=== PATIENT | male | born 1945 | race Caucasian/White ===

== ENCOUNTER 2018-07-14 19:05 | Inpatient (IN) | payer MEDICARE, MEDICAID ==
[~2018-07-14] VITALS: Ht 170.2 cm; Wt 78.5 kg
[~2018-07-14 19:05] MED LIST: BENA20TA10 PO; TRAM50TA3 PO
[2018-07-14] MEDS ORDERED: ALBUTEROL (0.083%) 2.5MG/3ML NEB HHN STA (19:26)
[2018-07-14] MEDS ORDERED: IPRATROPIUM BROMIDE (0.02%) 0.5MG/2.5ML NEB HHN STA (19:26)
[2018-07-14] MEDS ORDERED: METHYLPREDNISOLONE SOD SUCC 125 MG/2 ML VIAL IV STA (19:26)
[2018-07-14] MEDS ORDERED: MAGNESIUM 2 G PREMIX 50 ML IV STA (19:26)
[2018-07-14] MEDS ORDERED: FUROSEMIDE 20MG/2ML VIAL IVP ONE (19:45)
[2018-07-14 20:00] LABS: BASOPHILS % 0.8 % (0.0-2.0); EOSINOPHILS % 1.7 % (0.0-5.0); HEMATOCRIT. 34.1 % (42.0-52.0); HEMOGLOBIN. 11.2 g/dL (14.0-18.0); LYMPHOCYTES % 32.9 % (20.0-50.0); MEAN CORPUSCULAR HEMOGLOBIN 28.4 pg (28.0-32.0); MEAN CORPUSCULAR VOLUME 86.6 fL (80.0-94.0); MEAN PLATELET VOLUME 9.3 fl (7.4-10.4); MONOCYTES % 6.8 % (2.0-8.0); NEUTROPHILS % 57.8 % (40.0-76.0); PLATELET 258 x1000/uL (130-400); RED BLOOD CELL COUNT 3.93 mill/uL (4.7-6.1); RED CELL DISTRIBUTION WIDTH 14.7 % (11.6-14.6)
[2018-07-14 20:06] LABS: CHLORIDE 104 mEq/L (98-107)
[2018-07-14 20:08] LABS: PARTIAL THROMBOPLASTIN TIME 27.3 sec (23.4-31.0); PROTHROMBIN TIME 9.9 sec (9.1-11.1)
[2018-07-14] MEDS ORDERED: ACETAMINOPHEN 325MG TABLET PO PRN (22:00)
[2018-07-14] MEDS ORDERED: MAGNESIUM/ALUMINUM HYDROXIDE/SIMETHICONE 30ML UDC PO PRN (22:00)
[2018-07-14] MEDS ORDERED: ONDANSETRON HCL 4MG/2ML INJ IV PRN (22:00)
[2018-07-14] MEDS ORDERED: LORAZEPAM 2MG/ML CPJ IV PRN (22:00)
[2018-07-14] MEDS ORDERED: IPRATROPIUM/ALBUTEROL 0.5-3(2.5)MG/3ML NEB INH PRN (22:00)
[2018-07-14] MEDS ORDERED: HYDROMORPHONE HCL/PF 2MG/ML CPJ IV PRN (22:00)
[2018-07-14] MEDS ORDERED: HYDROCODONE/ACETAMINOPHEN 10/325MG TABLET PO PRN (22:00)
[2018-07-14] MEDS ORDERED: HYDRALAZINE 20MG/ML VIAL IV PRN (22:00)
[2018-07-14] MEDS ORDERED: DOCUSATE SODIUM 100MG CAPSULE PO PRN (22:00)
[2018-07-14] MEDS ORDERED: NA PHOS,M-B/NA PHOS,DI-BA ENEMA 118ML PR PRN (22:00)
[2018-07-14] MEDS ORDERED: GUAIFENESIN 200MG/10ML SUGAR FREE UDC PO PRN (22:00)
[2018-07-14] MEDS ORDERED: DIPHENHYDRAMINE 50MG/ML VIAL IV PRN (22:00)
[2018-07-14] MEDS ORDERED: DEXTROSE 50% WATER 50ML SYRINGE IV PRN (22:15)
[2018-07-14 22:29] LABS: CREATINE KINASE MB FRACTION 3.8 ng/mL (0.5-3.6)
[2018-07-15 00:45] LABS: CLARITY URINE CLEAR (CLEAR); COLOR URINE YELLOW (YELLOW); KETONES URINE NEGATIVE (NEGATIVE); LEUKOCYTE ESTERASE URINE TRACE (NEGATIVE); NITRITE URINE NEGATIVE (NEGATIVE); OCCULT BLOOD URINE 1+ (NEGATIVE); PROTEIN URINE 3+ (NEGATIVE); SPECIFIC GRAVITY URINE 1.012 (1.005-1.030); UROBILINOGEN URINE 0.2 E.U./dL (0.2-1.0)
[2018-07-15 05:39] LABS: HEMOGLOBIN. 9.9 g/dL (14.0-18.0); MEAN CORPUSCULAR HEMOGLOBIN 28.5 pg (28.0-32.0); MEAN CORPUSCULAR VOLUME 86.4 fL (80.0-94.0); MEAN PLATELET VOLUME 9.8 fl (7.4-10.4); PLATELET 224 x1000/uL (130-400); RED BLOOD CELL COUNT 3.48 mill/uL (4.7-6.1)
[2018-07-15 05:44] LABS: CHLORIDE 102 mEq/L (98-107)
[2018-07-15 05:54] LABS: CREATINE KINASE 243 IU/L (39-308)
[2018-07-15 05:55] LABS: T4 FREE 1.41 ng/dL (0.76-1.46)
[2018-07-15 05:58] LABS: CREATINE KINASE MB FRACTION 9.9 ng/mL (0.5-3.6)
[2018-07-15 06:48] LABS: PLATELET ESTIMATE NORMAL
[2018-07-15 08:00] VITALS: BP 127/61
[2018-07-15 09:00] VITALS: BP 127/61
[2018-07-15] MEDS ORDERED: FUROSEMIDE 40MG/4ML VIAL IV SCH (09:00)
[2018-07-15] MEDS: BLOOD SUGAR DIAGNOSTIC STRIP TEST SCH ×4 (09:29→20:56)
[2018-07-15] MEDS: ASPIRIN 81MG EC TABLET PO SCH (09:30)
[2018-07-15] MEDS: SODIUM CHLORIDE 0.9% INJ 3ML FLUSH IVF SCH ×3 (09:30→21:10)
[2018-07-15] MEDS: INSULIN LISPRO 100 UNITS/ML SUBCUT SCH ×4 (09:33→21:12)
[2018-07-15] MEDS ORDERED: ENOXAPARIN 40MG/0.4ML SYR SUBCUT SCH (10:00)
[2018-07-15] MEDS ORDERED: CLOPIDOGREL 75MG TABLET PO SCH (11:45)
[2018-07-15] MEDS ORDERED: METHYLPREDNISOLONE SOD SUCC 125 MG/2 ML VIAL IV SCH (12:00)
[2018-07-15] MEDS ORDERED: IOHEXOL-350 100 ML BOTTLE ONE (12:21)
[2018-07-15 16:00] VITALS: BP 141/71
[2018-07-15] MEDS ORDERED: LISI-604 MT (18:41)
[2018-07-15] MEDS ORDERED: METF-416 MT (18:41)
[2018-07-15] MEDS ORDERED: AMLO10TA80 MT (18:41)
[2018-07-15] MEDS ORDERED: OMEP40CA34 MT (18:41)
[2018-07-15] MEDS ORDERED: CALC-816 MT (18:41)
[2018-07-15] MEDS ORDERED: ATOR20TA65 MT (18:41)
[2018-07-15] MEDS ORDERED: RANI150T7 MT (18:41)
[2018-07-15] MEDS ORDERED: FURO20TA4 MT (18:41)
[2018-07-15] MEDS ORDERED: GABA-529 MT (18:41)
[2018-07-15] MEDS ORDERED: CLON0.2T MT (18:41)
[2018-07-15] MEDS ORDERED: GLIP10TA10 MT (18:41)
[2018-07-15] MEDS: BUDESONIDE 0.5MG/2ML NEB HHN SCH (19:48)
[2018-07-15] MEDS: IPRATROPIUM/ALBUTEROL 0.5-3(2.5)MG/3ML NEB HHN SCH (19:49)
[2018-07-15 20:00] VITALS: BP 153/76
[2018-07-15] MEDS: FUROSEMIDE 40MG/4ML VIAL IV SCH (21:09)
[2018-07-16] VITALS (16 sets, daily range): BP systolic 138–170; BP diastolic 64–92
[2018-07-16] MEDS: IPRATROPIUM/ALBUTEROL 0.5-3(2.5)MG/3ML NEB HHN SCH ×5 (01:51→20:57)
[2018-07-16] MEDS: BLOOD SUGAR DIAGNOSTIC STRIP TEST SCH ×4 (06:10→21:01)
[2018-07-16] MEDS: SODIUM CHLORIDE 0.9% INJ 3ML FLUSH IVF SCH ×3 (06:39→21:10)
[2018-07-16] MEDS: INSULIN LISPRO 100 UNITS/ML SUBCUT SCH ×4 (06:41→21:09)
[2018-07-16] MEDS: BUDESONIDE 0.5MG/2ML NEB HHN SCH ×2 (07:43→20:57)
[2018-07-16] MEDS ORDERED: IOHEXOL-300 100 ML BOTTLE ONE ×2 (08:42→09:21)
[2018-07-16] MEDS ORDERED: LIDOCAINE HCL 1% 20ML VIAL (Pyxis) INJ ONE (08:43)
[2018-07-16] MEDS ORDERED: MIDAZOLAM HCL 2 MG/2 ML VIAL ONE (08:51)
[2018-07-16] MEDS ORDERED: FENTANYL CITRATE/PF 50MCG/ML 2ML VIAL ONE (08:51)
[2018-07-16] MEDS ORDERED: ATROPINE SULFATE 1MG/10ML SYR IV PRN (09:45)
[2018-07-16] MEDS ORDERED: ACETAMINOPHEN 325MG TABLET PO PRN (09:45)
[2018-07-16] MEDS ORDERED: ENOXAPARIN 80MG/0.8ML SYR SUBCUT SCH (10:00)
[2018-07-16] MEDS: ASPIRIN 81MG EC TABLET PO SCH (10:33)
[2018-07-16] MEDS: FUROSEMIDE 40MG/4ML VIAL IV SCH ×2 (10:33→17:53)
[2018-07-16] MEDS: ENOXAPARIN 80MG/0.8ML SYR SUBCUT SCH (17:52)
[2018-07-17] VITALS (12 sets, daily range): BP systolic 117–180; BP diastolic 67–92
[2018-07-17] MEDS: IPRATROPIUM/ALBUTEROL 0.5-3(2.5)MG/3ML NEB HHN SCH ×4 (02:12→20:42)
[2018-07-17] MEDS: ENOXAPARIN 80MG/0.8ML SYR SUBCUT SCH ×2 (06:45→18:09)
[2018-07-17] MEDS: BLOOD SUGAR DIAGNOSTIC STRIP TEST SCH ×4 (06:46→21:16)
[2018-07-17] MEDS: SODIUM CHLORIDE 0.9% INJ 3ML FLUSH IVF SCH ×3 (06:46→21:20)
[2018-07-17] MEDS: BUDESONIDE 0.5MG/2ML NEB HHN SCH ×2 (07:35→20:42)
[2018-07-17] MEDS: INSULIN LISPRO 100 UNITS/ML SUBCUT SCH ×4 (08:24→21:18)
[2018-07-17] MEDS: ASPIRIN 81MG EC TABLET PO SCH (08:24)
[2018-07-17] MEDS: FUROSEMIDE 40MG/4ML VIAL IV SCH ×2 (08:24→18:09)
[2018-07-17 08:32] LABS: BASOPHILS % 0.7 % (0.0-2.0); EOSINOPHILS % 2.7 % (0.0-5.0); HEMATOCRIT. 32.8 % (42.0-52.0); HEMOGLOBIN. 10.8 g/dL (14.0-18.0); LYMPHOCYTES % 22.3 % (20.0-50.0); MEAN CORPUSCULAR HEMOGLOBIN 28.5 pg (28.0-32.0); MEAN CORPUSCULAR VOLUME 86.6 fL (80.0-94.0); MEAN PLATELET VOLUME 9.9 fl (7.4-10.4); MONOCYTES % 7.7 % (2.0-8.0); NEUTROPHILS % 66.6 % (40.0-76.0); PLATELET 230 x1000/uL (130-400); RED BLOOD CELL COUNT 3.79 mill/uL (4.7-6.1); RED CELL DISTRIBUTION WIDTH 14.9 % (11.6-14.6)
[2018-07-17 09:01] LABS: CHLORIDE 102 mEq/L (98-107)
[2018-07-17] MEDS ORDERED: NITROGLYCERIN 0.4MG TABLET SL SL PRN (16:00)
[2018-07-17] MEDS: FERROUS SULFATE 325MG TABLET PO SCH (18:09)
[2018-07-17] MEDS ORDERED: EPOETIN ALFA 10000UNITS/ML VIAL SUBCUT SCH (21:00)
[2018-07-17] MEDS ORDERED: SODIUM CHLORIDE 0.9% INJ 3ML FLUSH IVF SCH (22:00)
[2018-07-18] VITALS (12 sets, daily range): BP systolic 107–175; BP diastolic 51–93
[2018-07-18] MEDS: IPRATROPIUM/ALBUTEROL 0.5-3(2.5)MG/3ML NEB HHN SCH ×5 (02:10→20:55)
[2018-07-18] MEDS: SODIUM CHLORIDE 0.9% INJ 3ML FLUSH IVF SCH ×3 (05:41→21:41)
[2018-07-18] MEDS: BLOOD SUGAR DIAGNOSTIC STRIP TEST SCH ×4 (05:41→20:50)
[2018-07-18] MEDS: ENOXAPARIN 80MG/0.8ML SYR SUBCUT SCH ×2 (05:41→17:24)
[2018-07-18 06:41] LABS: BASOPHILS % 0.7 % (0.0-2.0); EOSINOPHILS % 4.3 % (0.0-5.0); HEMATOCRIT. 34.7 % (42.0-52.0); HEMOGLOBIN. 11.2 g/dL (14.0-18.0); LYMPHOCYTES % 24.1 % (20.0-50.0); MEAN CORPUSCULAR VOLUME 86.5 fL (80.0-94.0); MEAN PLATELET VOLUME 9.4 fl (7.4-10.4); MONOCYTES % 10.2 % (2.0-8.0); NEUTROPHILS % 60.7 % (40.0-76.0); PLATELET 248 x1000/uL (130-400); RED BLOOD CELL COUNT 4.01 mill/uL (4.7-6.1); RED CELL DISTRIBUTION WIDTH 14.6 % (11.6-14.6)
[2018-07-18 06:45] LABS: CHLORIDE 101 mEq/L (98-107)
[2018-07-18] MEDS: ASPIRIN 81MG EC TABLET PO SCH (08:18)
[2018-07-18] MEDS: FERROUS SULFATE 325MG TABLET PO SCH ×3 (08:18→17:19)
[2018-07-18] MEDS: FUROSEMIDE 40MG/4ML VIAL IV SCH ×2 (08:18→17:19)
[2018-07-18] MEDS: INSULIN LISPRO 100 UNITS/ML SUBCUT SCH ×4 (08:19→20:45)
[2018-07-18] MEDS: BUDESONIDE 0.5MG/2ML NEB HHN SCH (09:22)
[2018-07-18] MEDS: CLONIDINE 0.1MG TABLET PO PRN (12:44)
[2018-07-18] MEDS: CLOPIDOGREL 75MG TABLET PO SCH (15:03)
[2018-07-19] VITALS (14 sets, daily range): BP systolic 99–152; BP diastolic 56–84
[2018-07-19] MEDS: IPRATROPIUM/ALBUTEROL 0.5-3(2.5)MG/3ML NEB HHN SCH ×4 (01:09→20:55)
[2018-07-19] MEDS: ENOXAPARIN 80MG/0.8ML SYR SUBCUT SCH (05:35)
[2018-07-19] MEDS: SODIUM CHLORIDE 0.9% INJ 3ML FLUSH IVF SCH ×3 (05:38→22:10)
[2018-07-19] MEDS: BLOOD SUGAR DIAGNOSTIC STRIP TEST SCH ×4 (05:38→20:38)
[2018-07-19] MEDS: CLOPIDOGREL 75MG TABLET PO SCH (08:47)
[2018-07-19] MEDS: ASPIRIN 81MG EC TABLET PO SCH (08:47)
[2018-07-19] MEDS: FERROUS SULFATE 325MG TABLET PO SCH ×3 (08:47→17:21)
[2018-07-19] MEDS: INSULIN LISPRO 100 UNITS/ML SUBCUT SCH ×4 (08:48→20:36)
[2018-07-19] MEDS: FUROSEMIDE 40MG/4ML VIAL IV SCH ×2 (09:13→17:38)
[2018-07-19] MEDS ORDERED: ENOXAPARIN 80MG/0.8ML SYR SUBCUT NR (19:30)
[2018-07-20] VITALS (30 sets, daily range): BP systolic 93–179; BP diastolic 57–98
[2018-07-20] MEDS: IPRATROPIUM/ALBUTEROL 0.5-3(2.5)MG/3ML NEB HHN SCH ×3 (01:20→13:10)
[2018-07-20] MEDS: BLOOD SUGAR DIAGNOSTIC STRIP TEST SCH ×4 (05:39→21:13)
[2018-07-20] MEDS: SODIUM CHLORIDE 0.9% INJ 3ML FLUSH IVF SCH ×3 (05:39→22:10)
[2018-07-20 07:49] LABS: PLT FUNCT COLLAGEN/EPINEPHRINE 205 CT(SEC) (76-176)
[2018-07-20 07:50] LABS: PTLFUNC COLLAGEN/ADP 87 CT(SEC) (60-115)
[2018-07-20] MEDS: INSULIN LISPRO 100 UNITS/ML SUBCUT SCH ×4 (07:50→21:25)
[2018-07-20] MEDS: FERROUS SULFATE 325MG TABLET PO SCH ×3 (07:50→18:44)
[2018-07-20] MEDS: CLOPIDOGREL 75MG TABLET PO SCH (07:50)
[2018-07-20] MEDS: ASPIRIN 81MG EC TABLET PO SCH (07:50)
[2018-07-20] MEDS: FUROSEMIDE 40MG/4ML VIAL IV SCH ×2 (07:50→18:44)
[2018-07-20] MEDS: SODIUM CHLORIDE 0.45% 1,000 ML IV SCH ×2 (08:08→22:10)
[2018-07-20] MEDS: CLONIDINE 0.1MG TABLET PO PRN (12:17)
[2018-07-20] MEDS ORDERED: LIDOCAINE HCL 1% 20ML VIAL (Pyxis) INJ ONE (14:52)
[2018-07-20] MEDS ORDERED: IODIXANOL 320MG/ML 100 ML BOTTLE IV ONE ×2 (14:52→15:42)
[2018-07-20] MEDS ORDERED: MIDAZOLAM HCL 2 MG/2 ML VIAL ONE (15:00)
[2018-07-20] MEDS ORDERED: FENTANYL CITRATE/PF 50MCG/ML 2ML VIAL ONE (15:01)
[2018-07-20] MEDS ORDERED: HEPARIN SODIUM 1,000 UNIT/1ML VIAL IV ONE (15:58)
[2018-07-20] MEDS ORDERED: ASPIRIN 325MG TABLET ONE (16:05)
[2018-07-20] MEDS ORDERED: CLOPIDOGREL 75MG TABLET ONE (16:05)
[2018-07-20] MEDS ORDERED: ONDANSETRON HCL 4MG/2ML INJ IV PRN (16:15)
[2018-07-20] MEDS ORDERED: ACETAMINOPHEN 325MG TABLET PO PRN (16:15)
[2018-07-20] MEDS ORDERED: ATROPINE SULFATE 1MG/10ML SYR IV PRN (16:15)
[2018-07-20] MEDS ORDERED: ALLOPURINOL 300 MG TABLET PO SCH (21:00)
[2018-07-20] MEDS ORDERED: DOCUSATE SODIUM 100MG CAPSULE PO SCH (21:00)
[2018-07-20] MEDS ORDERED: CHLORHEXIDINE GLUCONATE 4% EXTERNAL USE TOP SCH (21:00)
[2018-07-20] MEDS ORDERED: BISACODYL 10MG SUPP PR PRN (21:00)
[2018-07-20] MEDS ORDERED: ASCORBIC ACID 500 MG TABLET PO SCH (21:00)
[2018-07-21] VITALS (13 sets, daily range): BP systolic 100–146; BP diastolic 54–76
[2018-07-21] MEDS ORDERED: CHLORHEXIDINE GLUCONATE 4% EXTERNAL USE TOP SCH (05:00)
[2018-07-21] MEDS: BLOOD SUGAR DIAGNOSTIC STRIP TEST SCH ×2 (05:17→11:29)
[2018-07-21] MEDS: SODIUM CHLORIDE 0.9% INJ 3ML FLUSH IVF SCH (05:20)
[2018-07-21] MEDS: INSULIN LISPRO 100 UNITS/ML SUBCUT SCH ×2 (07:20→12:15)
[2018-07-21 07:50] LABS: BASOPHILS % 0.8 % (0.0-2.0); EOSINOPHILS % 4.4 % (0.0-5.0); HEMATOCRIT. 33.8 % (42.0-52.0); HEMOGLOBIN. 10.8 g/dL (14.0-18.0); LYMPHOCYTES % 21.1 % (20.0-50.0); MEAN CORPUSCULAR HEMOGLOBIN 28.1 pg (28.0-32.0); MEAN PLATELET VOLUME 9.3 fl (7.4-10.4); NEUTROPHILS % 62.7 % (40.0-76.0); PLATELET 211 x1000/uL (130-400); RED BLOOD CELL COUNT 3.84 mill/uL (4.7-6.1); RED CELL DISTRIBUTION WIDTH 14.2 % (11.6-14.6)
[2018-07-21 07:58] LABS: CHLORIDE 102 mEq/L (98-107)
[2018-07-21] MEDS: FUROSEMIDE 40MG/4ML VIAL IV SCH (08:11)
[2018-07-21] MEDS: FERROUS SULFATE 325MG TABLET PO SCH ×2 (08:12→13:46)
[2018-07-21] MEDS: IPRATROPIUM/ALBUTEROL 0.5-3(2.5)MG/3ML NEB HHN SCH ×2 (08:25→13:55)
[2018-07-21] MEDS ORDERED: CLOPIDOGREL 75MG TABLET PO SCH (09:00)
[2018-07-21] MEDS ORDERED: ASPIRIN 325MG TABLET PO SCH (09:00)
[2018-07-21] MEDS ORDERED: NICARDIPINE 100MCG/ML 10ML VIAL (CATH LAB) IV ONE (16:00)
[2018-07-21] MEDS ORDERED: NITROGLYCERIN 50MCG/ML 10ML VIAL (CATH LAB) IV ONE (16:00)
[2018-07-21] MEDS ORDERED: ATORVASTATIN CALCIUM 40MG TABLET PO SCH (21:00)
== END 2018-07-21 16:11 | disposition home health service (06) | DRG 246 ==
LOC: ER 19:05 → 5WST 20:35 → EDBEDREQ 20:46 → EDBEDREQTM 20:46 → ENRESERV 07-15 07:33 → 3WST 07-16 10:00
PROVIDERS: ADMIT Internal Medicine; ATTEND Internal Medicine
PROC: 4A023N7 Measurement of Cardiac Sampling and Pressure, Left Heart, Percutaneous Approach (ICD-10-PCS; 2018-07-16)
PROC: B2111ZZ Fluoroscopy of Multiple Coronary Arteries using Low Osmolar Contrast (ICD-10-PCS; 2018-07-16)
PROC: 027034Z Dilation of Coronary Artery, One Artery with Drug-eluting Intraluminal Device, Percutaneous Approach (ICD-10-PCS; principal; 2018-07-20)
PROC: B2111ZZ Fluoroscopy of Multiple Coronary Arteries using Low Osmolar Contrast (ICD-10-PCS; 2018-07-20)
PROC: 4A033BC Measurement of Arterial Pressure, Coronary, Percutaneous Approach (ICD-10-PCS; 2018-07-20)
DX: I21.4 Non-ST elevation (NSTEMI) myocardial infarction (principal); J96.00 Acute respiratory failure, unspecified whether with hypoxia or hypercapnia; I50.41 Acute combined systolic (congestive) and diastolic (congestive) heart failure; J44.1 Chronic obstructive pulmonary disease with (acute) exacerbation; E87.2 Acidosis; I11.0 Hypertensive heart disease with heart failure; E78.5 Hyperlipidemia, unspecified; E11.65 Type 2 diabetes mellitus with hyperglycemia; I25.110 Atherosclerotic heart disease of native coronary artery with unstable angina pectoris; E66.9 Obesity, unspecified; K44.9 Diaphragmatic hernia without obstruction or gangrene; D64.9 Anemia, unspecified; Z87.891 Personal history of nicotine dependence; Z68.27 Body mass index [BMI] 27.0-27.9, adult; Z87.01 Personal history of pneumonia (recurrent); Z79.899 Other long term (current) drug therapy
CPT/HCPCS: 36415; 71045; 71275; 80048; 80061; 82550; 82553; 82962; 83036; 83605; 83880; 84145; 84439; 84443; 84484; 85347; 85379; 85576; 86850; 86900; 86920; 87804; 92928; 93005; 93306; 93454; 93458; 93571; 93880; 93970; 94640; 94644; 96365; 96366; 96375; 97162; 99291; C1760; C1769; C1874; C1887; C1893; J1644; J1650; J1815; J1940; J2250; J2930; J3010; J3475; J3490; J7611; J7620; J7626; Q9967

== ENCOUNTER 2018-09-11 16:30 | Emergency (ER) | payer MEDICARE, MEDICAID ==
[~2018-09-11] VITALS: Ht 182.9 cm; Wt 89.0 kg
[~2018-09-11 16:30] MED LIST changes: +AMLO10TA80 MT; +CALC-816 MT; +CLON0.2T MT; +GABA-529 MT; +GLIP10TA10 MT; +LISI-604 MT; +METF-416 MT; +OMEP40CA34 MT; +RANI150T7 MT
[2018-09-11 17:32] LABS: BASOPHILS % 0.6 % (0.0-2.0); EOSINOPHILS % 2.8 % (0.0-5.0); HEMATOCRIT. 28.3 % (42.0-52.0); HEMOGLOBIN. 9.2 g/dL (14.0-18.0); LYMPHOCYTES % 11.5 % (20.0-50.0); MEAN CORPUSCULAR VOLUME 85.7 fL (80.0-94.0); MEAN PLATELET VOLUME 8.8 fl (7.4-10.4); MONOCYTES % 8.5 % (2.0-8.0); NEUTROPHILS % 76.6 % (40.0-76.0); PLATELET 254 x1000/uL (130-400)
[2018-09-11 17:34] LABS: CHLORIDE 109 mEq/L (98-107)
[2018-09-11 17:56] LABS: PROTHROMBIN TIME 9.9 sec (9.1-11.1)
[2018-09-11 20:20] VITALS: BP 153/66
== END 2018-09-11 20:21 | disposition home or self-care (01) ==
LOC: ER 16:30
DX: E11.649 Type 2 diabetes mellitus with hypoglycemia without coma (principal); G93.40 Encephalopathy, unspecified; I11.0 Hypertensive heart disease with heart failure; I50.9 Heart failure, unspecified; J45.909 Unspecified asthma, uncomplicated; E78.00 Pure hypercholesterolemia, unspecified; Z79.899 Other long term (current) drug therapy
CPT/HCPCS: 36415; 82962; 93005; 99284

== ENCOUNTER 2019-05-07 16:23 | Inpatient (IN) | payer MEDICAID, MEDICARE ==
[~2019-05-07] VITALS: Ht 180.3 cm; Wt 75.6 kg
[~2019-05-07 16:23] MED LIST changes: +CALC-38 MT; -CALC-816 MT
[2019-05-07] MEDS ORDERED: ONDANSETRON HCL 4MG/2ML INJ IV STA (16:51)
[2019-05-07] MEDS ORDERED: SODIUM CHLORIDE 0.9% 1,000 ML IV ONE (16:51)
[2019-05-07 17:46] LABS: BASOPHILS % 0.6 % (0.0-2.0); EOSINOPHILS % 0.8 % (0.0-5.0); LYMPHOCYTES % 18.4 % (20.0-50.0); MEAN CORPUSCULAR HEMOGLOBIN 30.8 pg (28.0-32.0); MEAN CORPUSCULAR VOLUME 90.9 fL (80.0-94.0); MEAN PLATELET VOLUME 9.2 fl (7.4-10.4); MONOCYTES % 7.8 % (2.0-8.0); NEUTROPHILS % 72.4 % (40.0-76.0); PLATELET 195 x1000/uL (130-400); RED BLOOD CELL COUNT 1.54 mill/uL (4.7-6.1); RED CELL DISTRIBUTION WIDTH 13.1 % (11.6-14.6)
[2019-05-07 17:49] LABS: CHLORIDE 103 mEq/L (98-107)
[2019-05-07 18:03] LABS: HEMOGLOBIN. 4.7 g/dL (14.0-18.0)
[2019-05-07] MEDS ORDERED: PANTOPRAZOLE SODIUM 40 MG/VIAL IV ONE (18:30)
[2019-05-07 18:49] LABS: CLARITY URINE CLEAR (CLEAR); COLOR URINE YELLOW (YELLOW); KETONES URINE TRACE (NEGATIVE); LEUKOCYTE ESTERASE URINE NEGATIVE (NEGATIVE); NITRITE URINE NEGATIVE (NEGATIVE); OCCULT BLOOD URINE NEGATIVE (NEGATIVE); PROTEIN URINE NEGATIVE (NEGATIVE); SPECIFIC GRAVITY URINE 1.014 (1.005-1.030); UROBILINOGEN URINE 0.2 E.U./dL (0.2-1.0)
[2019-05-07] MEDS ORDERED: DIPHENHYDRAMINE 50MG/ML VIAL IV PRN (21:30)
[2019-05-07] MEDS ORDERED: MORPHINE SULFATE 2 MG/ML CPJ (NOT FOR IM USE) IV PRN (21:30)
[2019-05-07] MEDS ORDERED: HYDROCODONE/ACETAMINOPHEN 10/325MG TABLET PO PRN (21:30)
[2019-05-07] MEDS ORDERED: ACETAMINOPHEN 325MG TABLET PO PRN (21:30)
[2019-05-07] MEDS ORDERED: LORAZEPAM 2MG/ML CPJ IV PRN (21:30)
[2019-05-07] MEDS ORDERED: CLONIDINE 0.1MG TABLET PO PRN (21:30)
[2019-05-07] MEDS ORDERED: MAGNESIUM/ALUMINUM HYDROXIDE/SIMETHICONE 30ML UDC PO PRN (21:30)
[2019-05-07] MEDS ORDERED: ONDANSETRON HCL 4MG/2ML INJ IV PRN (21:30)
[2019-05-07] MEDS ORDERED: GUAIFENESIN 200MG/10ML SUGAR FREE UDC PO PRN (21:30)
[2019-05-07] MEDS ORDERED: DOCUSATE SODIUM 100MG CAPSULE PO PRN (21:30)
[2019-05-07] MEDS ORDERED: IPRATROPIUM/ALBUTEROL 0.5-3(2.5)MG/3ML NEB HHN PRN (21:30)
[2019-05-07] MEDS ORDERED: DEXTROSE 50% WATER 50ML SYRINGE IV PRN (22:00)
[2019-05-07] MEDS ORDERED: INSULIN LISPRO 100 UNITS/ML SUBCUT SCH (22:45)
[2019-05-07] MEDS: BLOOD SUGAR DIAGNOSTIC STRIP TEST SCH (23:00)
[2019-05-07 23:47] VITALS: BP 130/62
[2019-05-08] VITALS (23 sets, daily range): BP systolic 112–159; BP diastolic 48–70
[2019-05-08] MEDS: DEXT 5%/0.45% NACL 1000ML 1,000 ML IV SCH ×2 (00:57→10:45)
[2019-05-08] MEDS: LEVOFLOXACIN 250MG PREMIX 50 ML IV SCH (02:51)
[2019-05-08] MEDS: SODIUM CHLORIDE 0.9% INJ 3ML FLUSH IVF SCH ×3 (06:28→20:59)
[2019-05-08 07:26] LABS: CHLORIDE 108 mEq/L (98-107)
[2019-05-08 07:28] LABS: BASOPHILS % 0.6 % (0.0-2.0); EOSINOPHILS % 0.2 % (0.0-5.0); LYMPHOCYTES % 22.2 % (20.0-50.0); MEAN CORPUSCULAR HEMOGLOBIN 31.5 pg (28.0-32.0); MEAN CORPUSCULAR VOLUME 89.2 fL (80.0-94.0); MEAN PLATELET VOLUME 9.4 fl (7.4-10.4); MONOCYTES % 7.8 % (2.0-8.0); NEUTROPHILS % 69.2 % (40.0-76.0); PLATELET 128 x1000/uL (130-400); RED BLOOD CELL COUNT 2.04 mill/uL (4.7-6.1); RED CELL DISTRIBUTION WIDTH 13.6 % (11.6-14.6)
[2019-05-08 07:37] LABS: CREATINE KINASE 141 IU/L (39-308)
[2019-05-08 07:40] LABS: CREATINE KINASE MB FRACTION 3.9 ng/mL (0.5-3.6)
[2019-05-08 08:16] LABS: HEMATOCRIT. 18.2 % (42.0-52.0); HEMOGLOBIN. 6.4 g/dL (14.0-18.0)
[2019-05-08] MEDS: BLOOD SUGAR DIAGNOSTIC STRIP TEST SCH ×4 (08:17→20:40)
[2019-05-08] MEDS: INSULIN LISPRO 100 UNITS/ML SUBCUT SCH ×4 (08:30→20:57)
[2019-05-08] MEDS ORDERED: INSULIN LISPRO 100 UNITS/ML SUBCUT NR (08:30)
[2019-05-08 09:49] LABS: TOTAL IRON BINDING CAPACITY 195 ug/dL (250-450)
[2019-05-08] MEDS ORDERED: SODIUM CHLORIDE 0.9% 1,000 ML IV SCH (12:15)
[2019-05-08 12:57] LABS: HEMATOCRIT 22.9 % (42.0-52.0); HEMOGLOBIN 7.8 g/dL (14.0-18.0)
[2019-05-08] MEDS ORDERED: INSULIN GLARGINE UD 100 UNITS/ML SYR SUBCUT NR (14:00)
[2019-05-08 14:29] LABS: CREATINE KINASE MB FRACTION 3.6 ng/mL (0.5-3.6)
[2019-05-08] MEDS: PANTOPRAZOLE SODIUM 40 MG/VIAL IV SCH (17:41)
[2019-05-08] MEDS ORDERED: ASPI-1393 MT (18:02)
[2019-05-08] MEDS ORDERED: ATOR40TA70 MT (18:02)
[2019-05-08] MEDS ORDERED: FURO20TA4 MT (18:02)
[2019-05-08] MEDS ORDERED: CLOP75TA33 MT (18:02)
[2019-05-08] MEDS ORDERED: HYDR-4135 MT (18:02)
[2019-05-08 19:28] LABS: HEMATOCRIT 21.9 % (42.0-52.0); HEMOGLOBIN 7.6 g/dL (14.0-18.0)
[2019-05-09] VITALS (22 sets, daily range): BP systolic 120–178; BP diastolic 49–81
[2019-05-09 00:31] LABS: HEMATOCRIT 21.1 % (42.0-52.0); HEMOGLOBIN 7.2 g/dL (14.0-18.0)
[2019-05-09] MEDS: HYDRALAZINE 20MG/ML VIAL IV PRN (02:21)
[2019-05-09] MEDS: PANTOPRAZOLE SODIUM 40 MG/VIAL IV SCH ×2 (05:41→17:37)
[2019-05-09] MEDS: SODIUM CHLORIDE 0.9% INJ 3ML FLUSH IVF SCH ×3 (05:41→21:25)
[2019-05-09] MEDS: LEVOFLOXACIN 250MG PREMIX 50 ML IV SCH (05:42)
[2019-05-09 07:10] LABS: BASOPHILS % 0.6 % (0.0-2.0); EOSINOPHILS % 1.1 % (0.0-5.0); HEMATOCRIT. 25.6 % (42.0-52.0); HEMOGLOBIN. 8.7 g/dL (14.0-18.0); LYMPHOCYTES % 18.1 % (20.0-50.0); MEAN CORPUSCULAR HEMOGLOBIN 31.1 pg (28.0-32.0); MEAN PLATELET VOLUME 8.9 fl (7.4-10.4); MONOCYTES % 8.2 % (2.0-8.0); PLATELET 146 x1000/uL (130-400); RED BLOOD CELL COUNT 2.81 mill/uL (4.7-6.1); RED CELL DISTRIBUTION WIDTH 14.1 % (11.6-14.6)
[2019-05-09] MEDS: BLOOD SUGAR DIAGNOSTIC STRIP TEST SCH ×4 (07:30→21:00)
[2019-05-09 07:46] LABS: CHLORIDE 120 mEq/L (98-107)
[2019-05-09 09:18] LABS: T4 FREE 1.04 ng/dL (0.76-1.46)
[2019-05-09] MEDS: INSULIN LISPRO 100 UNITS/ML SUBCUT SCH ×5 (09:26→21:27)
[2019-05-09] MEDS: SODIUM CHLORIDE 0.45% 1,000 ML IV SCH (13:13)
[2019-05-09 17:30] LABS: CREATINE KINASE MB FRACTION 3.6 ng/mL (0.5-3.6)
[2019-05-09] MEDS ORDERED: FENTANYL CITRATE/PF 50MCG/ML 2ML VIAL ONE (17:52)
[2019-05-09] MEDS ORDERED: MIDAZOLAM HCL 5 MG/5 ML VIAL ONE (17:53)
[2019-05-10] VITALS (12 sets, daily range): BP systolic 123–178; BP diastolic 59–79
[2019-05-10] MEDS: HYDRALAZINE 20MG/ML VIAL IV PRN (04:22)
[2019-05-10] MEDS: SODIUM CHLORIDE 0.45% 1,000 ML IV SCH ×2 (04:23→20:03)
[2019-05-10 05:36] LABS: HEMATOCRIT. 28.1 % (42.0-52.0); HEMOGLOBIN. 9.6 g/dL (14.0-18.0); MEAN CORPUSCULAR HEMOGLOBIN 31.3 pg (28.0-32.0); MEAN PLATELET VOLUME 8.7 fl (7.4-10.4); PLATELET 157 x1000/uL (130-400); RED BLOOD CELL COUNT 3.06 mill/uL (4.7-6.1); RED CELL DISTRIBUTION WIDTH 14.2 % (11.6-14.6)
[2019-05-10] MEDS: SODIUM CHLORIDE 0.9% INJ 3ML FLUSH IVF SCH ×3 (05:40→21:25)
[2019-05-10] MEDS: LEVOFLOXACIN 250MG PREMIX 50 ML IV SCH (05:40)
[2019-05-10] MEDS: PANTOPRAZOLE SODIUM 40 MG/VIAL IV SCH ×2 (05:58→18:27)
[2019-05-10] MEDS: BLOOD SUGAR DIAGNOSTIC STRIP TEST SCH ×4 (05:58→21:18)
[2019-05-10 06:00] LABS: CHLORIDE 120 mEq/L (98-107)
[2019-05-10 06:09] LABS: CREATINE KINASE 116 IU/L (39-308)
[2019-05-10 06:11] LABS: CREATINE KINASE MB FRACTION 4.7 ng/mL (0.5-3.6)
[2019-05-10] MEDS: INSULIN LISPRO 100 UNITS/ML SUBCUT SCH ×4 (07:41→21:23)
[2019-05-10 09:54] LABS: NUCLEATED RED BLOOD CELLS 3 /100 WBC; PLATELET ESTIMATE NORMAL
[2019-05-10] MEDS: DEXTROSE 5% WATER 1,000 ML IV SCH ×2 (13:00→19:49)
[2019-05-10] MEDS ORDERED: SIMETHICONE 40 MG/0.6 ML 30ML ONE (15:59)
[2019-05-10] MEDS ORDERED: MIDAZOLAM HCL 5 MG/5 ML VIAL ONE (16:00)
[2019-05-10] MEDS ORDERED: FENTANYL CITRATE/PF 50MCG/ML 2ML VIAL ONE (16:00)
[2019-05-10] MEDS: IPRATROPIUM/ALBUTEROL 0.5-3(2.5)MG/3ML NEB HHN SCH ×2 (16:00→20:32)
[2019-05-10] MEDS ORDERED: MIDAZOLAM HCL 5 MG/5 ML VIAL IV PRN (16:03)
[2019-05-10] MEDS ORDERED: FENTANYL CITRATE/PF 50MCG/ML 2ML VIAL IV PRN (16:04)
[2019-05-10] MEDS: SUCRALFATE 1 G/10 ML UDC PO SCH ×2 (18:27→21:00)
[2019-05-10] MEDS: AMLODIPINE 10MG TABLET PO SCH (18:28)
[2019-05-10] MEDS: OMEPRAZOLE 20MG CAPSULE EXTENDED RELEASE PO SCH (21:24)
[2019-05-10] MEDS: GUAIFENESIN 600MG ER TABLET PO SCH (21:24)
[2019-05-10] MEDS ORDERED: INSULIN GLARGINE UD 100 UNITS/ML SYR SUBCUT SCH ×2 (22:00)
[2019-05-11] VITALS (8 sets, daily range): BP systolic 136–159; BP diastolic 59–77
[2019-05-11] MEDS ORDERED: DEXT 5%/0.45% NACL 1000ML 1,000 ML IV SCH
[2019-05-11] MEDS: IPRATROPIUM/ALBUTEROL 0.5-3(2.5)MG/3ML NEB HHN SCH ×4 (00:38→12:03)
[2019-05-11] MEDS: OMEPRAZOLE 20MG CAPSULE EXTENDED RELEASE PO SCH (05:45)
[2019-05-11] MEDS: PANTOPRAZOLE SODIUM 40 MG/VIAL IV SCH (05:45)
[2019-05-11] MEDS: LEVOFLOXACIN 250MG PREMIX 50 ML IV SCH (05:46)
[2019-05-11] MEDS: SUCRALFATE 1 G/10 ML UDC PO SCH ×2 (05:46→11:15)
[2019-05-11] MEDS: SODIUM CHLORIDE 0.9% INJ 3ML FLUSH IVF SCH ×2 (05:46→14:55)
[2019-05-11] MEDS: BLOOD SUGAR DIAGNOSTIC STRIP TEST SCH ×2 (05:52→12:13)
[2019-05-11 06:51] LABS: BASOPHILS % 0.5 % (0.0-2.0); EOSINOPHILS % 3.5 % (0.0-5.0); HEMATOCRIT. 27.9 % (42.0-52.0); HEMOGLOBIN. 9.4 g/dL (14.0-18.0); LYMPHOCYTES % 28.3 % (20.0-50.0); MEAN CORPUSCULAR HEMOGLOBIN 31.6 pg (28.0-32.0); MEAN CORPUSCULAR VOLUME 93.5 fL (80.0-94.0); MEAN PLATELET VOLUME 9.2 fl (7.4-10.4); MONOCYTES % 8.2 % (2.0-8.0); NEUTROPHILS % 59.5 % (40.0-76.0); PLATELET 162 x1000/uL (130-400); RED BLOOD CELL COUNT 2.98 mill/uL (4.7-6.1); RED CELL DISTRIBUTION WIDTH 14.5 % (11.6-14.6)
[2019-05-11 07:06] LABS: CHLORIDE 114 mEq/L (98-107)
[2019-05-11] MEDS ORDERED: POTASSIUM CHLORIDE 20MEQ TABLET SR PO SCH (07:30)
[2019-05-11] MEDS: INSULIN LISPRO 100 UNITS/ML SUBCUT SCH ×2 (07:31→12:45)
[2019-05-11] MEDS: GUAIFENESIN 600MG ER TABLET PO SCH (08:13)
[2019-05-11] MEDS: AMLODIPINE 10MG TABLET PO SCH (08:14)
[2019-05-11] MEDS ORDERED: CLOPIDOGREL 75MG TABLET PO SCH (09:00)
== END 2019-05-11 16:30 | disposition home or self-care (01) | DRG 871 ==
LOC: ER 16:41 → 5EST 18:24 → EDBEDREQSVC 18:26 → EDBEDREQ 18:26 → ENRESERV 21:37 → 3WST 05-09 11:06
PROVIDERS: ADMIT Internal Medicine; ATTEND Internal Medicine
PROC: 30233N1 Transfusion of Nonautologous Red Blood Cells into Peripheral Vein, Percutaneous Approach (ICD-10-PCS; 2019-05-07)
PROC: 0DB68ZX Excision of Stomach, Via Natural or Artificial Opening Endoscopic, Diagnostic (ICD-10-PCS; principal; 2019-05-10)
DX: A41.9 Sepsis, unspecified organism (principal); E11.00 Type 2 diabetes mellitus with hyperosmolarity without nonketotic hyperglycemic-hyperosmolar coma (NKHHC); E43 Unspecified severe protein-calorie malnutrition; J96.00 Acute respiratory failure, unspecified whether with hypoxia or hypercapnia; K25.4 Chronic or unspecified gastric ulcer with hemorrhage; J69.0 Pneumonitis due to inhalation of food and vomit; N17.0 Acute kidney failure with tubular necrosis; E87.1 Hypo-osmolality and hyponatremia; E87.0 Hyperosmolality and hypernatremia; D64.9 Anemia, unspecified; E87.5 Hyperkalemia; I50.9 Heart failure, unspecified; I11.0 Hypertensive heart disease with heart failure; I25.10 Atherosclerotic heart disease of native coronary artery without angina pectoris; E78.00 Pure hypercholesterolemia, unspecified; Z95.5 Presence of coronary angioplasty implant and graft; E78.5 Hyperlipidemia, unspecified; J45.909 Unspecified asthma, uncomplicated; K31.7 Polyp of stomach and duodenum; K44.9 Diaphragmatic hernia without obstruction or gangrene; E11.65 Type 2 diabetes mellitus with hyperglycemia; Z68.23 Body mass index [BMI] 23.0-23.9, adult
CPT/HCPCS: 36415; 71045; 71250; 80048; 80061; 81003; 82550; 82553; 82728; 82962; 83036; 83540; 83550; 83880; 84439; 84443; 84484; 85014; 85018; 85379; 86677; 86850; 86900; 86920; 88305; 88312; 88313; 93005; 93306; 93970; 94640; 96361; 96374; 96375; 97161; 99285; C9113; J0360; J1815; J1956; J2250; J2405; J3010; J7030; J7040; J7070; J7620; P9016